=== PATIENT | male | born 1960 | race Caucasian/White ===

== ENCOUNTER 2016-08-01 06:42 | Day surgery (SDC) ==
[2016-08-01] MEDS ORDERED: LIDOCAINE 1% 20 ML MDV ID ONE (07:15)
[2016-08-01] MEDS ORDERED: DIPRIVAN 20 ML VIAL IVP ONE (08:40)
[2016-08-01] MEDS ORDERED: VERSED ONE (08:40)
[2016-08-01 09:59] VITALS: BP 112/74; TEMP 97.4
--- NOTE | 2016-08-02 09:03 | OP ---
INDICATIONS FOR PROCEDURE: 56-year-old gentleman presents for his first ever screening colonoscopy. MEDICATIONS: SEE ANESTHESIA NOTES. PROCEDURE: COLONOSCOPY, SNARE POLYPECTOMY. REPORT: The risks, benefits, alternatives and limitations were discussed in detail with the patient. Informed consent was obtained. After adequate sedation was achieved, a digital rectal exam revealed good tone, no masses. The colonoscope was introduced into the rectum and advanced under direct visual guidance to the cecum. The cecum was identified by the appendiceal orifice and IC valve. I then slowly withdrew the scope in a circumferential manner examining the mucosa quite carefully. I looked on the proximal and distal side of folds and flexures as best as possible and I was able to retroflex the scope in the right colon and left colon to increase visualization. In the very proximal ascending colon, there was a small 5 mm sessile polyp that I removed by snare technique. In the distal transverse area, there were three polyps. These ranged from about 3 mm in size to 6 to 7 mm. They were all sessile. I removed them by snare technique. The smallest one was destroyed using a snare. In the descending and sigmoid area, there were two 5 mm polyps, both sessile, both removed and destroyed completely using snare technique. In the rectum, there was slightly raised 6 mm polyp that I removed by snare technique. On retroflex view of the anal canal, there were small internal hemorrhoids. No other abnormalities were noted. The prep was good. The withdrawal time was 17 minutes and 45 seconds. The patient tolerated the procedure well with stable vital signs and pulse oximetry throughout. IMPRESSION: 1. SEVEN (7) SMALL POLYPS REMOVED OR DESTROYED ABOVE. 2. SMALL INTERNAL HEMORRHOIDS. RECOMMENDATIONS: 1. High fiber diet. 2. Office visit as needed. 3. Await polyp pathology. If everything is benign recommend repeat colonoscopy examination again in 3 years, sooner if there are any signs or symptoms to indicate otherwise. CC: DR. TATUM SPRINGER
== END 2016-08-01 10:02 | disposition home or self-care (01) ==
LOC: SURG 06:42
PROVIDERS: ATTEND Internal Medicine Gastroenterology
DX: Z12.11 Encounter for screening for malignant neoplasm of colon (principal); D12.2 Benign neoplasm of ascending colon; D12.3 Benign neoplasm of transverse colon; D12.7 Benign neoplasm of rectosigmoid junction; K64.8 Other hemorrhoids; E11.9 Type 2 diabetes mellitus without complications
CPT/HCPCS: 82962

== ENCOUNTER 2018-06-04 17:10 | Outpatient (CLI) ==
--- NOTE | 2018-06-05 08:50 | DI ---
EXAM: CHEST FRONTAL AND LATERAL VIEWS HISTORY: Chest wall pain, left rib pain. COMPARISON: None FINDINGS: Heart size and mediastinal contour within normal limits. No acute infiltrates. Tressa l vascularity with no pleural fluid or pneumothorax. The bony thorax has no acute finding. IMPRESSION: No acute process.
--- NOTE | 2018-06-05 08:53 | DI ---
EXAM: Frontal chest, left ribs four views HISTORY: Chest wall and rib pain. FINDINGS / IMPRESSION: Normal heart size. Lungs are clear. No pleural fluid or pneumothorax. No a cute fracture or rib deformity.
== END 2018-06-04 17:11 | disposition home or self-care (01) ==
LOC: RAD 17:10
PROVIDERS: ATTEND Family Medicine
DX: R07.89 Other chest pain (principal)